=== PATIENT | female | born 1985 | race Caucasian/White ===

== ENCOUNTER 2020-09-20 09:21 | Emergency (ER) | payer BC, SELFPAY ==
[2020-09-20 09:31] VITALS: BP 141/85; PULSE 86; RESP 19; TEMP 37.2; O2SAT 98; BMI 26.1
--- NOTE | 2020-09-20 09:37 | HMH.EDUTC ---
[facility] [place] Disposition Clinical Impression: Viral syndrome Asthma exacerbation Qualifiers: Asthma severity: unspecified severity Asthma persistence: unspecified Qualified Code(s): J45.901 - Unspecified asthma with (acute) exacerbation Disposition: Home, Self-Care Condition on Discharge: Good Instructions: DI for Asthma -- Adult, Preventing the Spread of Coronavirus Discharge Instructions Additional Instructions: Drink plenty of fluids. Take tylenol or ibuprofen for pain or fever. Take the medications as directed. Follow up with your regular doctor. GO TO THE ER FOR ANY WORSENING SYMPTOMS Prescriptions: methylPREDNISolone [Medrol] 4 mg PO DIRECTED 6 Days #21 tab.ds.pk Transmission Status: Received by [facility] #[id number] Benzonatate [Tessalon Perle 100mg Cap] 100 mg PO TIDP PRN #30 cap PRN Reason: Cough Transmission Status: Received by [facility] #[id number] Azithromycin [Z-Murray 250mg Tab*] 250 mg PO UD DOSE PK #6 tab Transmission Status: Received by [facility] #[id number] Referrals: No [place] [Primary Care Provider] - Forms: Work/School Release Time of Disposition: 09:55 Medical Decision Making - Medical Records Medical records reviewed: No: I reviewed the patient's medical records. - Kashif Inquiry Pt receiving controlled substance: No Vital Signs: 09/20/20 09:31 09/20/20 10:04 Temperature 99 F 99 F Temperature Source Temporal Artery Scan Temporal Artery Scan Pulse Rate 84 Pulse Rate [Left] 86 Respiratory Rate 19 18 Blood Pressure 135/81 Blood Pressure [Right Arm] 141/85 H Blood Pressure Mean [Right Arm] 103 02 Sat by Pulse Oximetry 98 Oxygen Delivery Method Room Air Orders (Tests/Meds): ORDERS Category Date Time Status Covid-19 Nasal PCR ([facility]) Routine Lab 09/20/20 09:50 Received [facility] [place] HPI - General Stated complaint: congestion, fever Time Seen by Provider: 09/20/20 09:38 - History of Present Illness Provider Complaint: She states that for the past 2 days she has had fever up to 102, body aches, nasal congestion. She has a history of asthma. She states that she has had a dry cough and wheezing at times. She denies shortness of breath and chest pain. - Related Data Previous Rx's Medication Instructions Recorded Azithromycin [Z-Murray 250mg Tab*] 250 mg PO UD DOSE PK #6 tab 09/20/20 Benzonatate [Tessalon Perle 100mg 100 mg PO TIDP PRN #30 cap 09/20/20 Cap] methylPREDNISolone [Medrol] 4 mg PO DIRECTED 6 Days #21 09/20/20 tab.ds.pk Allergies Allergy/AdvReac Type Severity Reaction Status Date / Time Sulfa (Sulfonamide Allergy Intermediate I-ITCHING Verified 09/20/20 09:24 Antibiotics) [SULFA (SULFONAMIDE ANTIBIOTICS)] codeine [CODEINE] Allergy Mild Verified 09/20/20 09:24 latex [LATEX] Allergy Mild Verified 09/20/20 09:24 [facility] History - Hepatitis A Screen Attestation statement:: This patient has been screened for Hepatitis A risk factors. I have reviewed the patient's past medical history: Yes ROS Obtained: Yes All systems reviewed & no additional complaints - Constitutional Constitutional: Reports chills, Reports fever(s), Reports poor appetite, Reports malaise - Eyes Eyes: Denies eye discharge - ENT Ears, Nose, Mouth, and Throat: Reports as per HPI - Cardiovascular Cardiovascular: Denies chest pain - Respiratory Respiratory: Reports chest congestion, Reports cough, Denies dyspnea, Denies coughing up blood, Denies stridor, Reports wheezing - Gastrointestinal Gastrointestingal: Denies: abdominal pain, diarrhea, nausea, vomiting - Musculoskeletal Musculoskeletal: Denies joint pain - Integumentary/Breasts Skin/Breast: Denies rash Physical Exam - General General appearance: alert, in no apparent distress - Head Head exam: atraumatic, normocephalic, normal inspection - Eye Eye exam: Present: normal appearance, PERRL, EOMI - ENT ENT exam: Present: mucous mem
[2020-09-20 10:04] VITALS: BP 135/81; PULSE 84; RESP 18; TEMP 37.2
== END 2020-09-20 10:06 | disposition home or self-care (01) ==
PROVIDERS: Emergency Provider Nurse Practitioner Family; PCP Family Medicine
DX: B34.9 Viral infection, unspecified (principal); J45.901 Unspecified asthma with (acute) exacerbation; Z20.822 Contact with and (suspected) exposure to COVID-19; Z88.2 Allergy status to sulfonamides; Z91.040 Latex allergy status
CPT/HCPCS: 99202; G0463; U0003

== ENCOUNTER 2021-07-17 23:08 | Emergency (ER) | payer BC, SELFPAY ==
[2021-07-17 23:18] VITALS: BP 131/88; PULSE 93; RESP 18; TEMP 36.5; O2SAT 97; BMI 26.6
--- NOTE | 2021-07-18 00:43 | HMH.EDEYEP ---
ED Disposition Clinical Impression: Acute iritis Corneal abrasion, left Qualifiers: Encounter type: initial encounter Qualified Code(s): S05.02XA - Injury of conjunctiva and corneal abrasion without foreign body, left eye, initial encounter Eyelid laceration, left Qualifiers: Encounter type: initial encounter Qualified Code(s): S01.112A - Laceration without foreign body of left eyelid and periocular area, initial encounter Disposition: Home, Self-Care Condition on Discharge: Good Instructions: DI for Corneal Abrasion Additional Instructions: see dr barrera this am Referrals: No [place] [Primary Care Provider] - Forms: Work/School Release - Critical Care Critical Care Time: No Attestation: On 07/17/21, the high probability of a clinically significant, sudden or life threatening deterioration of the following system(s) required my full and direct attention, intervention and personal management. The time I documented below is in addition to time spent performing reported procedures but includes the following listed in this critical care notation. Medical Decision Making - Medical Records Medical records reviewed: Yes: I reviewed the patient's medical records. - Kashif Inquiry Pt receiving controlled substance: No Vital Signs: 07/17/21 23:18 07/18/21 00:44 Temperature 97.7 F 98.0 F Temperature Source Oral Oral Pulse Rate 91 H Pulse Rate [Apical] 93 H Respiratory Rate 18 18 Blood Pressure 131/88 Blood Pressure [Right Arm] 131/88 Blood Pressure Mean [Right Arm] 102 Blood Pressure Source Automatic Cuff Blood Pressure Source [Right Arm] Automatic Cuff Blood Pressure Position Sitting Blood Pressure Position [Right Arm] Sitting 02 Sat by Pulse Oximetry 97 Oxygen Delivery Method Room Air Room Air Orders (Tests/Meds): ED MEDICATIONS Discontinued Medications Generic Name Dose Route Start Last Admin Trade Name Freq PRN Reason Stop Dose Admin Neomycin/Polymyxin/Bacitracin 0.5 gm 07/18/21 00:53 07/18/21 00:55 [id number] Ophth Oint 3.5gm Tube OP 07/18/21 00:54 1 applic ONCE ONE Administration Tetanus/Diphtheria Toxoids 0.5 ml 07/17/21 23:44 07/17/21 23:48 Tetanus-Diphth Toxoid, Adult 0.5ml Syr IM 07/17/21 23:45 Not Given .ONCE ONE Tetanus/Reduced Diphtheria/Acell Pertussis 0.5 ml 07/18/21 00:42 07/18/21 00:43 Tet/Diphth/Pert-Adult 0.5ml Syringe IM 07/18/21 00:43 0.5 ml .ONCE ONE Administration Tetracaine HCl 1 ml 07/18/21 00:53 07/18/21 00:55 Tetracaine 0.5% Opth Maty 15ml OP 07/18/21 00:54 1 applic ONCE ONE Administration Medical Decision Narrative: has lt eye abrasion and possible traumatic iritis and has lac to lt upper lid and will refer to dr barrera in am Eye Problem HPI - General Chief complaint: Eye Problems Stated complaint: Left eye cut Time Seen by Provider: 07/18/21 00:43 Mode of Arrival: Ambulatory Source of Information: Patient, Medical Record Limitations: No Limitations Description of Symptoms (Recalled from ER Triage Doc. by RN): Patient states that 1 hour ago her dog scratched her left eye causing a laceration on her left eye lid, and under her left eye. Patient states that her eye feels very blurry since the incident and she can feel a throbbing in her left eye. Left eye vision acquite is 20/40. Right eye is 20/30. Patient does not wear contacts or glasses. Has had laser corrective surgery in the past. - History of Present Illness HPI Narrative: acute injury to lt eye with abrasion and eyelid lac chief complaint: eye pain, eye injury Onset (ago): hour(s) Location: left eye Eye Symptoms: burning, blurry vision Mechanism: direct trauma Severity: moderate Associated symptoms: none - Related Data Patient tetanus UTD: No Previous Rx's Medication Instructions Recorded Azithromycin [Z-Murray 250mg Tab*] 250 mg PO UD DOSE PK #6 tab 09/20/20 Benzonatate [Tessalon Perle 100mg 100 mg PO TIDP PRN #30 c
[2021-07-18 00:44] VITALS: BP 131/88; PULSE 91; RESP 18; TEMP 36.7; O2SAT 99
== END 2021-07-18 01:00 | disposition home or self-care (01) ==
PROVIDERS: Emergency Provider Emergency Medicine; PCP Family Medicine
DX: H20.00 Unspecified acute and subacute iridocyclitis (principal); S05.02XA Injury of conjunctiva and corneal abrasion without foreign body, left eye, initial encounter; S01.112A Laceration without foreign body of left eyelid and periocular area, initial encounter; W54.8XXA Other contact with dog, initial encounter; Z23 Encounter for immunization; Z88.2 Allergy status to sulfonamides; Z88.6 Allergy status to analgesic agent; Z91.040 Latex allergy status
CPT/HCPCS: 90471; 90715; 99282

== ENCOUNTER → 2022-12-16 12:35 | Outpatient (CLI) | payer BC, SELFPAY ==
--- NOTE | 2022-12-16 12:35 | CA_ITS ---
FINAL REPORT TECHNIQUE: Color Doppler, duplex Doppler and compression sonography of the left lower extremity deep venous systems was performed. CLINICAL HISTORY: EDEMA AND PAIN LLE,RECENT COVID PNEUMONIA COMPARISON: None FINDINGS: There is no evidence of deep venous thrombosis from the level of the groin to the calf. The veins are patent and compressible. IMPRESSION: No evidence of deep venous thrombosis left lower extremity. Reviewed, Interpreted and Dictated by Kehinde Guzman III, MD Transcribed by Renay Mcpherson Authenticated and [facility]
--- NOTE | 2022-12-16 12:35 | CA_ITS ---
APPROVED REPORT EXAM: Comprehensive 2D, Doppler, and color-flow Echocardiogram Rotor Plate Washer: Teresa Lara RDCS Ht: 5 ft 10 in Wt: 207lbs BSA: 2.12 BP: 125/88 mmHg Indications: SOA,POST COVID,POST COVID PNEUMONIA,SVT 2D Dimensions LVOT 1.27 cm (M/F) 1.5-2.5 M-Mode Dimensions RVDd 2.88 cm (0.9-2.6) LA Diam 3.03 cm (1.9-4.0) LVDd 3.65 cm (3.5-5.7) Ao Diam 2.66 cm (2.0-3.7) LVDs 2.62 cm (3.5-5.7) IVSd 0.87 cm (0.6-1.1) PWd 0.87 cm (0.6-1.1) EF (Teich) 55.40% FS 28.20% EDV (Teich) 56.30 mL TAPSE 2.42 (<1.7) ESV (Teich) 25.10 mL LV Diastology E Decel Time 193.00 (160-240 msec) E/A Ratio 0.9 MED E' 6.80 (< 7 cm/sec) E'/MED E' Ratio 9.71 (>14) LAT E' 9.00 (<10 cm/sec) E/LAT E' Ratio 7.33 (>14) Mitral Valve MV E Max Alexander. 66.00 (40-130 cm/s) MV A Velocity 76.00 (40-130 cm/s) E/A Ratio 0.86 MV Decel. Time 193.00 (160-240 ms) MV PHT 57.00 ms Left Ventricle The left ventricle is normal size. The left ventricular systolic function is normal. The left ventricular ejection fraction is within the normal range. There is normal left ventricular wall thickness. There is normal LV segmental wall motion. The left ventricular diastolic function is normal. LVEF is 55-60%. Right Ventricle The right ventricle is normal size. The right ventricular systolic function is normal. Atria The left atrium size is normal. The right atrium size is normal. There is no Doppler evidence of interatrial shunt. Aortic Valve The aortic valve is normal in structure. There is no aortic valvular stenosis. No aortic regurgitation is present. Mitral Valve The mitral valve is normal in structure. No evidence of mitral valve stenosis. There is no mitral valve regurgitation noted. Tricuspid Valve The tricuspid valve leaflets are thin and pliable. Trace tricuspid regurgitation. There is insufficient TR jet to estimate RVSP. Pulmonic Valve The pulmonary valve is normal in structure. Mild pulmonic regurgitation. Great Vessels The aortic root is normal in size. The ascending aorta is normal in size. IVC is normal in size and collapses >50% with inspiration. Pericardium There is no pericardial effusion. Other Information Study Quality: Adequate Conclusion Normal biventricular systolic function. No significant valvular stenosis or regurgitation. Electronically signed by : Katelyn Rosales MD 12/17/2022 20:27:55
[2022-12-16 14:03] LABS: D-Dimer 0.51 ug/mL (0.0-0.5)
[2022-12-16 14:14] LABS: Basophils # 0.1 K/mm3 (0-0.2); Basophils % 0.5 % (0.1-2.0); Eosinophils # 0.3 K/mm3 (0.0-0.4); Eosinophils % 2.2 % (0.1-12.0); Hematocrit 42.1 % (37.0-47.0); Hemoglobin 14.7 g/dL (12.2-16.2); Lymphocytes # 3.4 K/mm3 (0.7-4.5); Lymphocytes % 26.2 % (10-50); Mean Corpuscular Hemoglobin 31.5 pg (27.0-31.2); Mean Platelet Volume 7.8 fl (7.4-10.4); Monocytes # 0.7 K/mm3 (0.1-1.0); Monocytes % 5.4 % (1.7-9.3); Neutrophils # 8.6 K/mm3 (1.8-7.8); Neutrophils % 65.8 % (37.0-80.0); Platelet Count 203 K/mm3 (142-424); Red Blood Count 4.67 M/mm3 (4.20-5.40); Red Cell Distribution Width 12.9 % (11.5-17.5)
[2022-12-16 16:00] LABS: Erythrocyte Sedimentation Rate 15 mm/hr (0-20)
[2022-12-16 16:03] LABS: Alanine Aminotransferase 30 U/L (12-78); Alkaline Phosphatase 90 U/L (38-126); Anion Gap 10.7 mEq/L (5-15); Aspartate Amino Transferase 27 U/L (14-36); Bilirubin,Direct 0.1 mg/dl (0.0-0.4); Bilirubin,Indirect 0.6 mg/dL (0.0-0.9); Bilirubin,Total 0.7 mg/dl (0.2-1.3); Bilirubin,Unconjugated 0.6 mg/dL (0.0-1.1); Blood Urea Nitrogen 19 mg/dl (7-17); Calcium 9.2 mg/dl (8.4-10.2); Carbon Dioxide 32 mmol/L (22.0-30.0); Chloride 98 mmol/L (98-107); Estimated Glomerular Filt Rate 70 ml/min (>60); GFR (African American) 85 ML/MIN (>60); Glucose 76 mg/dl (74-100); Potassium 3.7 mmoL/L (3.5-5.1); Sodium 137 mmol/L (136-145); Total Protein,Serum 6.9 g/dl (6.3-8.2)
[2022-12-16 16:14] LABS: NT Pro Brain Natriuretic Pep. < 20.0 pg/mL (0-125)
[2022-12-16 16:21] LABS: Free T4 (Free Thyroxine) 1.19 ng/dl (0.78-2.19)
[2022-12-16 16:34] LABS: Thyroid Stimulating Hormone 1.28 uIU/mL (0.465-4.68)
[2022-12-30 18:12] LABS: 1,25 Dihydroxy Vitamin D 28 pg/mL (.); 1,25-Dihydroxy, Vitamin D-2 <10 pg/mL (.); 1,25-Dihydroxy, Vitamin D-3 26 pg/mL (.)
== END ==
LOC: LAB 12:35
PROVIDERS: PCP Nurse Practitioner Family; Visit Provider Internal Medicine
DX: R00.0 Tachycardia, unspecified (principal); R06.00 Dyspnea, unspecified; R94.31 Abnormal electrocardiogram [ECG] [EKG]; M79.662 Pain in left lower leg; R60.0 Localized edema; Z86.16 Personal history of COVID-19; Z68.29 Body mass index [BMI] 29.0-29.9, adult
CPT/HCPCS: 36415; 80048; 80076; 82652; 83880; 84439; 84443; 85025; 85378; 85651; 86140; 93306; 93971